=== PATIENT | male | born 1940 | race Caucasian/White ===

== ENCOUNTER 2019-11-26 08:07 | Outpatient (CLI) | payer MEDICARE, OTHER | END 2019-11-26 23:59 | disposition home or self-care (01) | LOC: CFH 08:07 | PROVIDERS: ATTEND Nurse Practitioner Family | DX: E55.9 Vitamin D deficiency, unspecified (principal); Z91.89 Other specified personal risk factors, not elsewhere classified | CPT/HCPCS: 77080 ==